=== PATIENT | male | born 2000 | race Caucasian/White ===

== ENCOUNTER 2024-10-23 07:07 | Emergency (ER) | payer BC, SELFPAY ==
--- NOTE | 2024-10-23 | ECG_ITS ---
Test Reason : chest pain Blood Pressure : */* mmHG Vent. Rate : 101 BPM Atrial Rate : 101 BPM P-R Int : 116 ms QRS Dur : 98 ms QT Int : 346 ms P-R-T Axes : 79 84 32 degrees QTcB Int : 448 ms Sinus tachycardia Right atrial enlargement Incomplete right bundle branch block Borderline ECG No previous ECGs available Referred By: Generic ED Physician Electronically Signed By: Yusef Goodman
--- NOTE | ~2024-10-23 | CT_ITS ---
EXAMINATION: CT ANGIOGRAM CHEST CLINICAL INFORMATION: Elevated d-dimer. Left-sided chest pain. COMPARISON: None available. TECHNIQUE: Multiple axial images were obtained through the chest after the administration of 65 mL of Omnipaque 350 intravenous contrast. Extensive vascular post-processing including two-dimensional and three-dimensional reformatted images were created and reviewed on an independent workstation. SmartPrep technique. This CT examination was performed using dose optimization techniques as appropriate, variously including the following: *Automated exposure control *Adjustment of mA and/or kV according to patient size (this includes techniques or standardized protocols for targeted exams where dose is matched to indication/reason for exam; i.e. extremities or head) *Use of iterative reconstruction technique. DLP: 211 mGy centimeter. FINDINGS: No intraluminal filling defects within the main pulmonary artery or its main branches. Thoracic aorta demonstrates normal caliber and enhancement pattern without intimal flap. Azygos lobe, congenital variant. No gross consolidation, pleural effusion or pneumothorax. There is a 2.3 cm 6 pleura nodular attenuation, lingula. There is a 0.9 cm subpleural nodule, right lung base. No pericardial effusion. No lymphadenopathy, mediastinum or perihilar No axillary lymphadenopathy. There is a pectus excavatum deformity. There is no acute fracture or listhesis in the axial skeleton. No lytic or blastic lesions. CT/CT angio chest PE protocol IMPRESSION: No acute pulmonary artery emboli. No aneurysm or dissection, thoracic aorta. No acute airspace disease. Nonspecific subpleural nodules, lingula and right lung base. Pectus excavatum deformity. Fleischner guidelines were followed. Electronically signed by: Sandor Nina MD 10/23/2024 10:44 AM EST
--- NOTE | ~2024-10-23 | XR_ITS ---
EXAMINATION: XR CHEST CLINICAL INFORMATION: left sided chest pain COMPARISON: None. TECHNIQUE: 2 views of the chest were obtained. FINDINGS: No significant abnormality is noted involving the heart, lungs, mediastinum, bony thorax or soft tissues. XR/XR chest 2V IMPRESSION: Unremarkable chest examination. Electronically signed by: Roldan Paz MD 10/23/2024 07:55 AM [facility]
[2024-10-23 07:16] VITALS: BP 142/93; PULSE 102; RESP 18; TEMP 36.9; O2SAT 100; BMI 18.3
--- NOTE | 2024-10-23 07:33 | ED_ITS ---
HPI - Chest Pain General Chief Complaint: Chest Pain Stated Complaint: CHEST PAIN Time Seen by Provider: 10/23/24 07:33 Source: patient and family (mom) Mode of arrival: ambulatory Limitations: no limitations History of Present Illness ED Provider: hermelinda gutierrez pa-c HPI narrative: 24 year old male with no significant pmhx presents to the ED today with his mother for evaluation of left sided chest pain which began around 7-8 hours ago. At the time of onset, patient was seated on the couch vaping. He then began to have sudden onset left sided chest pain, worse with breathing. No radiation. Pain has continued into this morning, prompting him to come to the ED today for evaluation. He has not trialed ant OTC analgesia for pain. No hx of sudden cardiac deaths in the family. His father and grandmother both have atrial fibrillation. He is not on any AC. No recent travel/ long car rides. Related Data Previous Rx's ?Medication ?Instructions ?Recorded naproxen 500 mg tablet 500 mg PO Q12H PRN pain (scale 10/23/24 score 1-3) #20 tabs Allergies Allergy/AdvReac Type Severity Reaction Status Date / Time No Known Allergies Allergy Verified 10/23/24 07:17 Review of Systems 2 Review of Systems: Constitutional: No fever, chills, fatigue, night sweats, weight changes ENT/Mouth: No ear pain, hearing loss, nasal congestion, sinus pain, rhinorrhea, sore throat Eyes: No eye pain, swelling, redness, vision changes, discharge Cardio: No palpitations, VELOZ, orthopnea, peripheral edema. +L sided chest pain Pulm: No SOB, cough, sputum, wheezing, dyspnea, hemoptysis GI: No nausea, vomiting, hematemesis, abdominal pain, diarrhea, constipation, hematochezia, melena : No irregular bleeding, dysuria, frequency, urgency, hesitancy, hematuria, flank pain, urinary flow changes, urinary incontinence or retention MSK: No back pain, neck pain, joint pain, myalgias Skin: No lesions, rashes Neuro: No weakness, numbness, paresthesias, LOC, dizziness, headache Psych: No anxiety/panic, depression, SI/HI, AH/VH All other systems reviewed and are negative. [facility] Past Medical History Attestation statement: The following information was validated with the patient. Source: old records reviewed and nursing notes reviewed Social History Social History Advance Directives: No Advance Directives Information Provided: Yes Do you have a plan to hurt others: No Plan Physical Exam 2 Vital Signs: Vital Signs: Last Vital Signs Temp 98.2 F 10/23/24 11:55 Pulse 88 10/23/24 11:55 Resp 16 10/23/24 11:55 BP 128/77 10/23/24 11:55 Pulse Ox 98 10/23/24 11:55 O2 Del Method Room Air 10/23/24 11:55 BMI result Body Mass Index 18.3 hypertensive, tachycardic General: Well appearing, in no acute distress. Skin: Warm, dry, intact. No rashes or lesions. Head: Normocephalic, atraumatic. EENT: Hearing is intact b/l. Conjunctiva clear. Sclera is anicteric. PERRLA. EOM intact. Moist mucous membranes.? Neck: Supple without LAD. FROM. Trachea midline.? Cardiac: RRR. pectus excavatum. no reproducible chest wall tenderness. no crepitus. Lungs: Normal respiratory effort without accessory muscle use. CTA bilaterally. No rales, rhonchi, or wheezes.? Back: No midline spinous or paraspinal tenderness. No step off deformity. Ext: Upper and lower extremities atraumatic, without tenderness, deformity, swelling or erythema. Full ROM throughout. no calf tenderness. Neuro: AOx3. Normal speech. Ambulating with steady gait. Psych: Appropriate mood and affect. Responds appropriately to questions. Course Course Course Narrative: 0935 -- CBC without leukocytosis or left shift. no anemia, h&h stable. chemistry without acute electrolyte abnormality requiring intervention. no nahid. normal liver function. initial troponin undetectable. will repeat for delta. ekg showing sinus tachycardia with a rate of 101 beats per minute, QT 346, QTC 448, no acute ischemic changes or ST elevations. There are T-wave inversions in V1. negative for covid/flu/rsv. cxr does not demonstrate pneumonia, effusion, or pneumothorax. ddimer elevated to 164. below cut off value of 250 however at upper level of normal limits. On re-evaluation, he endorses improvement in pain after receiving toradol. now just endorsing a dull ache to the left chest. after discussion with patient and his mother, will add on CTA chest to r/o PE. 1059 -- CTA chest without pulmonary emboli. No aneurysm or dissection. No acute airspace disease. There are nonspecific subpleural nodules to lingula and right lung base. Pectus excavatum noted. Repeat trop pending. 1131 --delta troponin flat. Patient's workup is essentially unremarkable. ?pleuritis secondary to vaping. He was also found to have subpleural nodules which may be causing discomfort. CAD lengthy discussion with patient regarding smoking cessation. discussed all work up results with patient. he states his pain is significantly improved with Toradol. Medications Administered Discontinued Medications Generic Name Dose Route Start Last Admin Trade Name Freq PRN Reason Stop Dose Admin Iohexol 65 ml 10/23/24 10:02 10/23/24 10:02 Iohexol 350 Mg/Ml 100 Ml Infus..Btl IV 10/23/24 10:03 65 ml ONCE ONE Administration Ketorolac Tromethamine 30 mg 10/23/24 08:01 10/23/24 08:12 Ketorolac Tromethamine 30 Mg/Ml Vial IM 10/23/24 08:02 30 mg ONCE ONE Administration Procedures Smoking Cessation Time Spent Discussing Smoking Cessation w/Patient (min): 10 Patient Acknowledges Need for Cessation: Yes Medical Decision Making Medical Decision Making MDM Narrative: 24 year old male with no significant pmhx presents to the ED today with his mother for evaluation of left sided chest pain which began around 7-8 hours ago. On arrival, patient hypertensive and tachycardic. not hypoxic, satting 100% on RA. afebrile. He is nontoxic appearing and in NAD. Lungs are CTA bilaterally. No noted respiratory distress. No tripoding. No accessory muscle use. Pectus excavatum noted. RRR. no reproducible chest wall tenderness to palpation. No crepitus. No calf tenderness bilaterally. History without high risk features (not substernal, no exertional component, not relieved with rest).? Minimal CAD risk factors (including age). Exam without evidence of volume overload. EKG without signs of active ischemia. HEART score: 1 (smoker).? Given the timing of pain to ED presentation, plan to send delta troponin to evaluate for NSTEMI. PERC 1 (tachycardic)- will obtain ddimer. Differential diagnosis includes anemia, electrolyte abnormality, dehydration, ACS, arrhythmia, pneumothorax, pneumonia, viral syndrome, costochondritis, pleuritis, msk sprain/strain. Presentation not consistent with thoracic aortic dissection, cardiac effusion or tamponade. Plan: labs, troponin, EKG, CXR, pain control, reassessment Differential Diagnosis Differential Diagnoses: The differential diagnosis associated with the presentation includes as above. Admission/Observation Not indicated. Lab Data MDM Lab Attestation statement: I reviewed the patient's lab results. as above. 10/23/24 08:17 10/23/24 08:16 Labs: Lab Results 10/23/24 10/23/24 10/23/24 Range/Units 08:15 08:16 08:17 WBC 8.0 (4.8-10.8) X10*3/uL RBC 4.69 (4.60-5.80) X10*6/uL Hgb 14.7 (14.0-18.0) g/dl Hct 40.6 L (42.0-52.0) % MCV 86.6 (80.0-98.0) fL MCH 31.3 (27.0-33.0) pg MCHC 36.2 H (31.0-36.0) g/dl RDW 11.9 (11.0-16.0) % Plt Count 276 (160-400) X10*3/uL MPV 8.3 L (9.4-12.4) fL Immature Gran % (Auto) 0.4 (0.0-0.4) % Neut % (Auto) 65.3 (45-73) % Lymph % (Auto) 24.0 (20-40) % Hernando % (Auto) 9.2 (2-11) % Eos % (Auto) 0.5 (0-4) % Baso % (Auto) 0.6 (0-2) % Lymph # (Auto) 1.9 (1.2-4.9) X10*3/uL Hernando # (Auto) 0.7 (0.1-1.2) X10*3/uL Eos # (Auto) 0.0 (0.0-0.4) X10*3/uL Baso # (Auto) 0.1 (0.0-0.2) X10*3/uL Abs Immat Gran (auto) 0.03 (0.00-0.03) X10*3/uL Absolute Neuts (auto) 5.2 (2.0-8.3) x10*3/uL Absolute Nucleated RBC 0.000 (0.0-0.012) X10*3/uL Nucleated RBC % (auto) 0.0 (0.0-0.2) /100WBC D-Dimer High Sensitivty 164 NG/ML Sodium 142 (135-145) mmol/L Potassium 4.6 (3.3-5.1) mmol/L Chloride 108 (96-108) mmol/L Carbon Dioxide 26 (22-29) mmol/L Anion Gap 13 (12-20) BUN 7 L (9-16) mg/dL Creatinine 0.83 (0.5-1.4) mg/dL Estim Creat Clear Calc 117.8 Estimated GFR > 60 Random Glucose 94 (60-115) mg/dL Calcium 9.1 (8.4-10.2) mg/dL Total Bilirubin 0.9 (0.0-1.0) mg/dL AST 24 (5-37) U/L ALT 20 (0-40) U/L Alkaline Phosphatase 68 (39-117) U/L Troponin I High Sens < 2.7 (<3.5-35.0) ng/L Total Protein 7.7 (6.5-8.0) g/dL Albumin 4.9 (3.5-5.0) g/dL Influenza Type A (PCR) NEGATIVE (Negative) Influenza Type B (PCR) NEGATIVE (Negative) RSV RNA Qual (PCR) NEGATIVE (Negative) SARS-CoV-2 RNA (RT-PCR) NEGATIVE (Negative) 10/23/24 Range/Units 11:03 WBC (4.8-10.8) X10*3/uL RBC (4.60-5.80) X10*6/uL Hgb (14.0-18.0) g/dl Hct (42.0-52.0) % MCV (80.0-98.0) fL MCH (27.0-33.0) pg MCHC (31.0-36.0) g/dl RDW (11.0-16.0) % Plt Count (160-400) X10*3/uL MPV (9.4-12.4) fL Immature Gran % (Auto) (0.0-0.4) % Neut % (Auto) (45-73) % Lymph % (Auto) (20-40) % Hernando % (Auto) (2-11) % Eos % (Auto) (0-4) % Baso % (Auto) (0-2) % Lymph # (Auto) (1.2-4.9) X10*3/uL Hernando # (Auto) (0.1-1.2) X10*3/uL Eos # (Auto) (0.0-0.4) X10*3/uL Baso # (Auto) (0.0-0.2) X10*3/uL Abs Immat Gran (auto) (0.00-0.03) X10*3/uL Absolute Neuts (auto) (2.0-8.3) x10*3/uL Absolute Nucleated RBC (0.0-0.012) X10*3/uL Nucleated RBC % (auto) (0.0-0.2) /100WBC D-Dimer High Sensitivty NG/ML Sodium (135-145) mmol/L Potassium (3.3-5.1) mmol/L Chloride (96-108) mmol/L Carbon Dioxide (22-29) mmol/L Anion Gap (12-20) BUN (9-16) mg/dL Creatinine (0.5-1.4) mg/dL Estim Creat Clear Calc Estimated GFR Random Glucose (60-115) mg/dL Calcium (8.4-10.2) mg/dL Total Bilirubin (0.0-1.0) mg/dL AST (5-37) U/L ALT (0-40) U/L Alkaline Phosphatase (39-117) U/L Troponin I High Sens < 2.7 (<3.5-35.0) ng/L Total Protein (6.5-8.0) g/dL Albumin (3.5-5.0) g/dL Influenza Type A (PCR) (Negative) Influenza Type B (PCR) (Negative) RSV RNA Qual (PCR) (Negative) SARS-CoV-2 RNA (RT-PCR) (Negative) Independent Interpretation I performed an independent interpretation of an: EKG, Plain X-Ray and CT Scan Interpretation: EKG showing sinus tachycardia w/ right atrial enlargement, incomplete RBB, rate 101 bpm, no acute ischemic changes or ST elevations. CXR without obvious pneuothorax, no infiltrate or consolidation CTA chest without emboli Radiology Impression Discussion of test interpretation with radiology: I have reviewed the radiologist's reading. Radiologist Impression: EXAMINATION: XR CHEST CLINICAL INFORMATION: left sided chest pain COMPARISON: None. TECHNIQUE: 2 views of the chest were obtained. FINDINGS: No significant abnormality is noted involving the heart, lungs, mediastinum, bony thorax or soft tissues. XR/XR chest 2V IMPRESSION: Unremarkable chest examination. Electronically signed by: Roldan Paz MD 10/23/2024 07:55 AM EST EXAMINATION: CT ANGIOGRAM CHEST CLINICAL INFORMATION: Elevated d-dimer. Left-sided chest pain. COMPARISON: None available. TECHNIQUE: Multiple axial images were obtained through the chest after the administration of 65 mL of Omnipaque 350 intravenous contrast. Extensive vascular post-processing including two-dimensional and three-dimensional reformatted images were created and reviewed on an independent workstation. SmartPrep technique. This CT examination was performed using dose optimization techniques as appropriate, variously including the following: *Automated exposure control *Adjustment of mA and/or kV according to patient size (this includes techniques or standardized protocols for targeted exams where dose is matched to indication/reason for exam; i.e. extremities or head) *Use of iterative reconstruction technique. DLP: 211 mGy centimeter. FINDINGS: No intraluminal filling defects within the main pulmonary artery or its main branches. Thoracic aorta demonstrates normal caliber and enhancement pattern without intimal flap. Azygos lobe, congenital variant. No gross consolidation, pleural effusion or pneumothorax. There is a 2.3 cm 6 pleura nodular attenuation, lingula. There is a 0.9 cm subpleural nodule, right lung base. No pericardial effusion. No lymphadenopathy, mediastinum or perihilar No axillary lymphadenopathy. There is a pectus excavatum deformity. There is no acute fracture or listhesis in the axial skeleton. No lytic or blastic lesions. CT/CT angio chest PE protocol IMPRESSION: No acute pulmonary artery emboli. No aneurysm or dissection, thoracic aorta. No acute airspace disease. Nonspecific subpleural nodules, lingula and right lung base. Pectus excavatum deformity. Fleischner guidelines were followed. Electronically signed by: Sandor Nina MD 10/23/2024 10:44 AM EST Independent Historian Clinical information obtained from an independent historian. History obtained from or confirmed by: Parent (mom) Prescription Management I considered prescription management with: Pain Medication (naproxen) Chronic Conditions Patient?s care impacted by: Other (smoking) Social Determinants Patient?s care significantly limited by Social Determinants of Health including: Other Social Determinant of Health Critical Care Time Critical Care Time Critical Care Time: No Discharge Plan Discharge Clinical Impression: Atypical chest pain Patient Disposition: Home, Self-Care Instructions: Chest Pain (ED), Chest Wall Pain (ED) Additional Instructions: You were evaluated in the Emergency Department today for chest pain. Your evaluation has shown no signs of medical conditions requiring emergent intervention at this time, however I recommend that you follow up with your primary care provider or your maintenance leader as soon as possible for further testing as an outpatient. If you do not have one, a referral has been provided. Please call them to make an appointment, they will not call you. I advised NSAIDs for pain (motrin or naproxen). Do not take these together as this can increase risk of GI bleeding. It is imperative that you stop vaping/smoking. This is extremely harmful to your health and can lead to . Return to the Emergency Department if you experience worsening or uncontrolled chest pain, shortness of breath, light headedness, feeling faint, nausea, vomiting, or any other concerning symptoms. Prescriptions: New naproxen 500 mg tablet 500 mg PO Q12H PRN (Reason: pain (scale score 1-3)) Qty: 20 0RF Referrals: [facility] [Provider Group] - 3 days (chest pain) Stand Alone Forms: Work/School Release Interventions: ED Discharge Assessment Last Done: 10/23/24 11:55 Discharge Date/Time: 10/23/24 11:56 Print Language: Syrian
[2024-10-23] MEDS: Ketorolac Tromethamine 30 MG/ML VIAL IM (08:12)
[2024-10-23 08:22] LABS: MANUAL DIFF FLAG NO
[2024-10-23 08:24] LABS: Basophils Absolute Auto 0.1 X10*3/uL (0.0-0.2); Basophils Percent Auto 0.6 % (0-2); Eosinophils Percent Auto 0.5 % (0-4); Hematocrit 40.6 % (42.0-52.0); Hemoglobin 14.7 g/dl (14.0-18.0); Imm Gran Abs Auto 0.03 X10*3/uL (0.00-0.03); Imm Gran Pct Auto 0.4 % (0.0-0.4); Lymphocytes Absolute Auto 1.9 X10*3/uL (1.2-4.9); Mean Corpuscular HGB Conc 36.2 g/dl (31.0-36.0); Mean Corpuscular Hemoglobin 31.3 pg (27.0-33.0); Mean Corpuscular Volume 86.6 fL (80.0-98.0); Mean Platelet Volume 8.3 fL (9.4-12.4); Monocytes Absolute Auto 0.7 X10*3/uL (0.1-1.2); Monocytes Percent Auto 9.2 % (2-11); Neutrophils Absolute Auto 5.2 x10*3/uL (2.0-8.3); Neutrophils Percent Auto 65.3 % (45-73); Platelet Count 276 X10*3/uL (160-400); Red Blood Count 4.69 X10*6/uL (4.60-5.80); Red Cell Distribution Width 11.9 % (11.0-16.0)
[2024-10-23 08:31] LABS: D Dimer High Sensitivity 164 NG/ML
[2024-10-23 08:40] LABS: Alanine Aminotransferase 20 U/L (0-40); Albumin Level 4.9 g/dL (3.5-5.0); Alkaline Phosphatase 68 U/L (39-117); Anion Gap 13 (12-20); Aspartate Amino Transferase 24 U/L (5-37); Bilirubin Total 0.9 mg/dL (0.0-1.0); Blood Urea Nitrogen 7 mg/dL (9-16); Calcium 9.1 mg/dL (8.4-10.2); Carbon Dioxide 26 mmol/L (22-29); Chloride 108 mmol/L (96-108); Creatinine Clr Calc Pharmacy 117.8; Estimated Glomerular Filt Rate > 60; Glucose Random 94 mg/dL (60-115); Potassium 4.6 mmol/L (3.3-5.1); Sodium 142 mmol/L (135-145); Total Protein 7.7 g/dL (6.5-8.0)
[2024-10-23 08:42] VITALS: BP 128/77; PULSE 88; RESP 16; TEMP 36.8; O2SAT 98
[2024-10-23 08:46] LABS: Troponin-I High Sensitivity < 2.7 ng/L (<3.5-35.0)
[2024-10-23 09:04] LABS: Influenza A PCR NEGATIVE (Negative); Influenza B PCR NEGATIVE (Negative); Resp Syncy Virus RNA Qual PCR NEGATIVE (Negative); SARS COV2 PCR INHOUSE NEGATIVE (Negative)
[2024-10-23] MEDS: iohexoL 350 MG/ML 100 ML INFUS..BTL 65 ML IV (10:02)
[2024-10-23 11:29] LABS: Troponin-I High Sensitivity < 2.7 ng/L (<3.5-35.0)
[2024-10-23 11:55] VITALS: BP 128/77; PULSE 88; RESP 16; TEMP 36.8; O2SAT 98
== END 2024-10-23 11:56 | disposition home or self-care (01) ==
PROVIDERS: Physician Assistant Medical; Emergency Provider Student in an Organized Health Care Education/Training Program
DX: R07.89 Other chest pain (principal); I10 Essential (primary) hypertension; R00.0 Tachycardia, unspecified; U07.0 Vaping-related disorder; J68.8 Other respiratory conditions due to chemicals, gases, fumes and vapors; Z03.818 Encounter for observation for suspected exposure to other biological agents ruled out; Z79.899 Other long term (current) drug therapy
CPT/HCPCS: 0241U; 36415; 71046; 71275; 80053; 84484; 85025; 85379; 93005; 96372; 99284; J1885; Q9967

== ENCOUNTER → 2024-10-23 07:13 | Outpatient (BNV) | payer BC, SELFPAY | PROVIDERS: Emergency Provider Student in an Organized Health Care Education/Training Program; Visit Provider Internal Medicine Cardiovascular Disease | DX: R00.0 Tachycardia, unspecified (principal) | CPT/HCPCS: 93010 ==

== ENCOUNTER → 2024-10-23 07:33 | Outpatient (BNV) | payer BC, SELFPAY | PROVIDERS: Emergency Provider Student in an Organized Health Care Education/Training Program; Visit Provider Radiology Diagnostic Radiology | DX: R07.2 Precordial pain (principal); R91.8 Other nonspecific abnormal finding of lung field; Q67.6 Pectus excavatum | CPT/HCPCS: 71046; 71275 ==